=== PATIENT | female | born 1960 | race Caucasian/White ===

== ENCOUNTER → 2018-04-22 08:00 | Outpatient (CLI) | payer BC ==
[2015-09-26 11:16] VITALS: BMI 18.0
[~2018-04-22 08:00] MED LIST: ARICEPT10 MG PO; PRINIVIL20 MG PO
== END | disposition home or self-care (01) ==
LOC: D.MAMMO 08:00
PROVIDERS: ATTEND Family Medicine
DX: Z12.31 Encounter for screening mammogram for malignant neoplasm of breast (principal)